=== PATIENT | female | born 1985 | race Caucasian/White ===

== ENCOUNTER 2022-01-14 11:14 | Emergency (ER) | payer OTHER ==
[~2022-01-14 11:14] MED LIST: LODINE CAP 300300 MG PO; PREDNISONE50 MG PO; TESSALON PERLE100 MG PO; VENTOLIN HFA 66.7 GM INH
[2022-01-14 12:04] LABS: HEMOGLOBIN 14.3 gm/dl (12.3-15.3); RED BLOOD COUNT 4.85 M/UL (4.00-5.10); WHITE BLOOD COUNT 6.5 K/UL (4.5-11.0)
[2022-01-14 12:26] LABS: BUN/CREATININE RATIO 17 (0-10)
[2022-01-15 18:58] LABS: CANDIDA ALBICANS Not Detected (Negative); CANDIDA KRUSEI Not Detected (Negative); CANDIDA TROPICALIS Not Detected (Negative); ESCHERICHIA COLI Not Detected (Negative); HAEMOPHILUS INFLUENZAE Not Detected (Negative); KLEBSIELLA OXYTOCA Not Detected (Negative); KLEBSIELLA PNEUMONIAE Not Detected (Negative); KPC-CARBAPENEM-RESISTANCE GENE Not Detected (Negative); PROTEUS Not Detected (Negative); PSEUDOMONAS AERUGINOSA Not Detected (Negative); SERRATIA MARCESANS Not Detected (Negative); STAPHYLOCOCCUS AUREUS Not Detected (Negative); STREP AGALACTIAE (GROUP B) Not Detected (Negative); STREP PYOGENES (GROUP A) Not Detected (Negative); STREPTOCOCCUS Not Detected (Negative); vanA/B (VANCOMYCIN RESIST GENE Not Detected (Negative)
[2022-01-15 22:20] LABS: STAPHYLOCOCCUS DETECTED (Negative)
== END 2022-01-14 19:36 | disposition short-term general hospital (02) ==
LOC: ER1 11:14
PROVIDERS: Physician Assistant
DX: N13.2 Hydronephrosis with renal and ureteral calculous obstruction (principal); Z87.442 Personal history of urinary calculi; Z88.5 Allergy status to narcotic agent; F17.200 Nicotine dependence, unspecified, uncomplicated
CPT/HCPCS: 80053; 81001; 83605; 83690; 84703; 85025; 87040; 87150; 96374; 96375; 99285; J0696; J1170; J1885; Q9967